=== PATIENT | male | born 1975 | race Hispanic/Latino ===

== ENCOUNTER 2023-01-05 21:25 | Emergency (ER) | payer SELFPAY ==
[2023-01-05] MEDS ORDERED: TETRACAINE HCL 0.5% 4ML OPTH ONE (21:59)
[2023-01-05] MEDS ORDERED: FLUORESCEIN SODIUM 1 MG/WRAP ONE (22:20)
[2023-01-05] MEDS ORDERED: CYCLOPENTOLATE 2% OPTH 2 ML ONE (22:54)
[2023-01-05] MEDS ORDERED: NEO/POLY/DEX OPTH 3.5 GM TUBE ONE (22:57)
--- NOTE | 2023-01-20 15:15 | ER ---
Nurse's Notes [facility] Name: Mike Brewer Age: 47 yrs Sex: Male : 1975 Arrival Date: 01/05/2023 Time: 21:32 Bed 12 Private MD: Diagnosis: Injury of conjunctiva and corneal abrasion without foreign body;Ocular pain, right eye Presentation: 01/05 22:05 Chief complaint: Patient states: he got something in his right eye today and it is bb painful, red and he can't keep it open. Coronavirus screen: At this time, the client does not indicate any symptoms associated with coronavirus-19. Ebola Screen: No symptoms or risks identified at this time. Initial Sepsis Screen: Does the patient meet any 2 criteria? No. Patient's initial sepsis screen is negative. Does the patient have a suspected source of infection? No. Patient's initial sepsis screen is negative. Risk Assessment: Do you want to hurt yourself or someone else? Patient reports no desire to harm self or others. Onset of symptoms was January 05, 2023. 22:05 Method Of Arrival: Ambulatory bb 22:05 Acuity: DOUG 4 bb Triage Assessment: 22:07 General: Appears in no apparent distress. uncomfortable, Behavior is calm, cooperative. bb Pain: Complains of pain in right eye. EENT: Eyes are tearing on right eye. Neuro: Level of Consciousness is awake, alert, obeys commands, Oriented to person, place, time, situation. Cardiovascular: Capillary refill < 3 seconds Patient's skin is warm and dry. Respiratory: Respiratory effort is even, unlabored, Respiratory pattern is regular. GI: No signs and/or symptoms were reported involving the gastrointestinal system. Derm: Skin is pink, warm \T\ dry. Musculoskeletal: Circulation, motion, and sensation intact. Historical: - Allergies: 22:07 No Known Allergies; bb - Home Meds: 22:07 None [Active]; bb - PMHx: 22:07 None; bb - Immunization history:: Adult Immunizations up to date. - Social history:: Smoking status: Patient denies any tobacco usage or history of. - Family history:: not pertinent. Screenin:15 [facility] ED Fall Risk Assessment (Adult) Score/Fall Risk Level 0 - 2 = Low Risk. eh3 22:15 Abuse screen: Denies threats or abuse. Denies injuries from another. Nutritional eh3 screening: No deficits noted. Tuberculosis screening: No symptoms or risk factors identified. Assessment: 22:15 General: Appears in no apparent distress. uncomfortable, Behavior is cooperative, eh3 appropriate for age. Pain: Complains of pain in right eye. Neuro: Level of Consciousness is awake, alert, obeys commands, Oriented to person, place, time, situation, Pupils are PERRLA. Cardiovascular: Capillary refill < 3 seconds Patient's skin is warm and dry. Respiratory: Airway is patent Respiratory effort is even, unlabored, Respiratory pattern is regular, symmetrical. GI: Abdomen is round non-distended. : No signs and/or symptoms were reported regarding the genitourinary system. EENT: Eyes are tearing on right eye Sclera/Cornea are reddened in outer aspect of conjuctiva of right eye, iris of right eye, inner aspect of conjuctiva of right eye and right inner canthus Lid(s) swelling in right lid. Derm: Skin is pink, warm \T\ dry. Musculoskeletal: Circulation, motion, and sensation intact. Range of motion: intact in all extremities. 23:15 Reassessment: Patient appears in no apparent distress at this time. Patient and/or eh3 family updated on plan of care and expected duration. Pain level reassessed. Patient is alert, oriented x 3, equal unlabored respirations, skin warm/dry/pink. Vital Signs: 22:05 BP 161 / 101; Pulse 62; Resp 16 S; Temp 97.8(O); Pulse Ox 99% on R/A; Weight 81.65 kg bb (R); Height 5 ft. 6 in. (R); Pain 10/10; 22:05 Body Mass Index 29.05 (81.65 kg, 167.64 cm) bb 22:05 Pain Scale: Adult bb ED Course: 21:32 Patient arrived in ED. es 22:07 Triage completed. bb 22:07 Arm band placed on Patient placed in an exam room, on a stretcher, on pulse oximetry. bb 22:11 Nhung Tse, RN is Primary Nurse. eh3 22:15 Patient has correct armband on for positive identification. Bed in low position. Call eh3 light in reach. Side rails up X2. Pulse ox on. NIBP on. Door closed. Noise minimized. Lights dimmed. 22:22 Ruben Richard MD is Attending Physician. [facility] 23:00 Assist provider with eye exam of right eye. using fluorescein stain, Performed by Ruben [facility] Jose Manuel BLAKE Dressed with eye patch Patient tolerated well. 23:05 Viral Blackman MD is Referral Physician. [facility] 23:57 Patient did not have IV access during this emergency room visit. [facility] Administered Medications: 22:11 Drug: Tetracaine Ophthalmic Drops 0.5 % 1 drops Route: Ophthalmic; Site: right eye; 23:38 Follow up: Response: Pain is decreased [facility] 23:29 Drug: Cyclopentolate Ophthalmic Drops (2%) 1 drops Route: Ophthalmic; Site: right eye; [facility] 23:38 Follow up: Response: No adverse reaction [facility] 23:29 Drug: Tobrex Ophthalmic Ointment 0.3 % 1 application Route: Ophthalmic; Site: right eye;[facility] 23:38 Follow up: Response: No adverse reaction [facility] 23:38 Not Given (Patient Refused): University PO 10 mg-325 mg 1 tabs PO once [facility] Medication: 23:58 VIS not applicable for this client. 3 Outcome: 23:07 Discharge ordered by . [facility] 23:57 Discharged to home ambulatory, with friend. [facility] 23:57 Condition: stable 23:57 Discharge instructions given to patient, Instructed on discharge instructions, follow up and referral plans. medication usage, wound care, Demonstrated understanding of instructions, follow-up care, medications, wound care, Prescriptions given X 2. 23:58 Patient left the ED. [facility] Signatures: Ruben Richard MD MD cha Salyer, Edna es Ballard, Brenda, RN RN bb Nhung Tse RN RN 3 Corrections: (The following items were deleted from the chart) 23:56 23:54 [facility] ED Fall Risk Assessment (Adult) Score/Fall Risk Level 0 - 2 = Low Risk [place] [id number]
--- NOTE | 2023-01-20 15:15 | EDPHYS ---
Physician Documentation [facility] Name: Mike Brewer Age: 47 yrs Sex: Male : 1975 Arrival Date: 01/05/2023 Time: 21:32 Bed 12 Private MD: ED Physician Ruben Richard HPI: 01/05 22:55 This 47 yrs old Male presents to ER via Ambulatory with complaints of Eye rivas Problem. 22:55 The patient is experiencing pain, redness, tearing, The patient sustained contusion, to rivas the right eye. Onset: The symptoms/episode began/occurred this morning. Duration: the symptoms are continuous. Aggravated by blinking, light, pressure, rubbing, Alleviated by nothing, covering eye. Associated signs and symptoms: Pertinent positives: None. Patient wears glasses. Severity of symptoms: At their worst the symptoms were moderate severe in the emergency department the symptoms are unchanged. The patient has not experienced similar symptoms in the past. Historical: - Allergies: 22:07 No Known Allergies; bb - Home Meds: 22:07 None [Active]; bb - PMHx: 22:07 None; bb - Immunization history:: Adult Immunizations up to date. - Social history:: Smoking status: Patient denies any tobacco usage or history of. - Family history:: not pertinent. ROS: 22:55 Constitutional: Negative for fever, chills, and weight loss, ENT: Negative for injury, rivas pain, and discharge, Neck: Negative for injury, pain, and swelling, Cardiovascular: Negative for chest pain, palpitations, and edema, Respiratory: Negative for shortness of breath, cough, wheezing, and pleuritic chest pain, Abdomen/GI: Negative for abdominal pain, nausea, vomiting, diarrhea, and constipation, Back: Negative for injury and pain, : Negative for injury, bleeding, discharge, and swelling, MS/Extremity: Negative for injury and deformity, Skin: Negative for injury, rash, and discoloration, Neuro: Negative for headache, weakness, numbness, tingling, and seizure, Psych: Negative for depression, anxiety, suicide ideation, homicidal ideation, and hallucinations, Allergy/Immunology: Negative for hives, rash, and allergies, Endocrine: Negative for neck swelling, polydipsia, polyuria, polyphagia, and marked weight changes, Hematologic/Lymphatic: Negative for swollen nodes, abnormal bleeding, and unusual bruising. 22:55 Eyes: Positive for pain, photophobia, redness, swelling, of the right upper eyelid, outer aspect of conjuctiva of right eye and iris of right eye. Exam: 22:55 Constitutional: This is a well developed, well nourished patient who is awake, alert, rivas and in no acute distress. Head/Face: Normocephalic, atraumatic. ENT: Nares patent. No nasal discharge, no septal abnormalities noted. Tympanic membranes are normal and external auditory canals are clear. Oropharynx with no redness, swelling, or masses, exudates, or evidence of obstruction, uvula midline. Mucous membranes moist. Neck: Trachea midline, no thyromegaly or masses palpated, and no cervical lymphadenopathy. Supple, full range of motion without nuchal rigidity, or vertebral point tenderness. No Meningismus. Chest/axilla: Normal chest wall appearance and motion. Nontender with no deformity. No lesions are appreciated. Cardiovascular: Regular rate and rhythm with a normal S1 and S2. No gallops, murmurs, or rubs. Normal PMI, no JVD. No pulse deficits. Respiratory: Lungs have equal breath sounds bilaterally, clear to auscultation and percussion. No rales, rhonchi or wheezes noted. No increased work of breathing, no retractions or nasal flaring. Abdomen/GI: Soft, non-tender, with normal bowel sounds. No distension or tympany. No guarding or rebound. No evidence of tenderness throughout. Back: No spinal tenderness. No costovertebral tenderness. Full range of motion. Skin: Warm, dry with normal turgor. Normal color with no rashes, no lesions, and no evidence of cellulitis. MS/ Extremity: Pulses equal, no cyanosis. Neurovascular intact. Full, normal range of motion. Neuro: Awake and alert, GCS 15, oriented to person, place, time, and situation. Cranial nerves II-XII grossly intact. Motor strength 5/5 in all extremities. Sensory grossly intact. Cerebellar exam normal. Normal gait. Psych: Awake, alert, with orientation to person, place and time. Behavior, mood, and affect are within normal limits. 22:55 Eyes: Periorbital structures: swelling, that is mild, on the right upper eyelid, on the right upper eyelid, Pupils: no acute changes, equal, round, and reactive to light and accomodation, Extraocular movements: intact throughout, Conjunctiva: injected, in the right eye, Corneas: abrasion, that is small, on the right, at 10 o'clock, Sclera: no appreciated abnormality, Anterior chamber: normal, no acute changes, Lids and lashes: edema, of the right eye, funduscopic exam reveals no obvious abnormalities, no acute changes. Vital Signs: 22:05 BP 161 / 101; Pulse 62; Resp 16 S; Temp 97.8(O); Pulse Ox 99% on R/A; Weight 81.65 kg bb (R); Height 5 ft. 6 in. (R); Pain 10/10; 22:05 Body Mass Index 29.05 (81.65 kg, 167.64 cm) bb 22:05 Pain Scale: Adult bb MDM: 22:23 Patient medically screened. rivas 23:14 Differential diagnosis: Corneal abrasion of Corneal ulcer of Foreign body in Acute rivas iritis of Acute glaucoma in Ultraviolet keratitis in right eye. Data reviewed: vital signs, nurses notes. Consideration of Admission/Observation Escalation of care including admission/observation considered. Management of patient was discussed with the following: Animal Treatment Investigator: dr arabella benedict, will see in am 930 am. I considered the following discharge prescriptions or medication management in the emergency department Medications were administered in the Emergency Department. See DEC. 01/05 23:05 Order name: Misc. Order: patch eye; Complete Time: 23:54 rivas Administered Medications: 22:11 Drug: Tetracaine Ophthalmic Drops 0.5 % 1 drops Route: Ophthalmic; Site: right eye; bb 23:38 Follow up: Response: Pain is decreased 3 23:29 Drug: Cyclopentolate Ophthalmic Drops (2%) 1 drops Route: Ophthalmic; Site: right eye; 3 23:38 Follow up: Response: No adverse reaction 3 23:29 Drug: Tobrex Ophthalmic Ointment 0.3 % 1 application Route: Ophthalmic; Site: right eye;eh3 23:38 Follow up: Response: No adverse reaction 3 23:38 Not Given (Patient Refused): Buford PO 10 mg-325 mg 1 tabs PO once eh3 Disposition Summary: 01/05/23 23:07 Discharge Ordered Location: Home rivas Problem: new rivas Symptoms: have improved rivas Condition: Stable rivas Diagnosis - Injury of conjunctiva and corneal abrasion without foreign body rivas - Ocular pain, right eye [facility] Followup: [facility] - With: Arabella Benedict MD - When: Tomorrow - Reason: Recheck today's complaints, Re-evaluation by your physician Discharge Instructions: - Corneal Abrasion rivas - Corneal Abrasion, [id number] rivas - Discharge Summary Sheet cp Forms: - Medication Reconciliation Form [facility] - Thank You Letter [facility] - Antibiotic Education [facility] - Prescription Opioid Use [facility] Prescriptions: - acetaminophen-codeine 300-30 mg Oral tablet - take 2 tablet by ORAL route every 6 hours as needed for pain; 18 tablet; rivas Refills: 0, Product Selection Permitted - Tobrex - administer 1 inch ribbon by OPHTHALMIC route 4 times per day; 3.5 gram; cp Refills: 0, Product Selection Permitted Signatures: Ruben Richard MD MD cha Ballard, Brenda, RN RN bb Nhung Tse RN RN eh3
== END 2023-01-05 23:58 | disposition home or self-care (01) ==
LOC: ER 21:25
DX: S05.01XA Injury of conjunctiva and corneal abrasion without foreign body, right eye, initial encounter (principal)
CPT/HCPCS: 99284